=== PATIENT | female | born 1995 | race Two or more races ===

== ENCOUNTER 2024-05-16 11:43 | Emergency (ER) | payer SELFPAY ==
[~2024-05-16] VITALS: Ht 167.6 cm; Wt 107.0 kg
[2024-05-16 12:06] VITALS: BP 107/67; PULSE 87; RESP 16; O2SAT 98
[2024-05-16 12:55] LABS: Urine WBC None Seen /hpf (0 - 5)
[2024-05-16 13:08] LABS: Urine Bacteria FEW /hpf (None Seen); Urine Blood Negative /uL (Negative); Urine Clarity Clear (Clear); Urine Color Colorless (Yellow); Urine Protein, UAD Negative (Negative); Urine Specific Gravity 1.008 (1.001-1.035); Urine Urobilinogen Normal (Negative)
== END 2024-05-16 13:50 | disposition left against medical advice (07) ==
LOC: ER 11:43
DX: M54.6 Pain in thoracic spine (principal); R11.0 Nausea; Z53.21 Procedure and treatment not carried out due to patient leaving prior to being seen by health care provider
CPT/HCPCS: 81001